=== PATIENT | male | born 1940 | race African-American/Black ===

== ENCOUNTER 2016-11-17 18:09 | Emergency (ER) | payer OTHER ==
[~2016-11-17] VITALS: Ht 180.3 cm; Wt 81.0 kg
[~2016-11-17 18:09] MED LIST: ALBU8I INH; MOME17I; TRAV0.00 BOTH EYES
[2016-11-17 18:11] VITALS: BP 163/77; PULSE 92; RESP 18; TEMP 98.4; O2SAT 98
[2016-11-17] MEDS ORDERED: [UNRECOGNIZED DRUG - OTHER] (18:38)
[2016-11-17 18:59] VITALS: BP 172/87; PULSE 93; RESP 15; O2SAT 100
[2016-11-17] MEDS ORDERED: SODIUM CHLOR 0.9% 1000 ML INJ 1,000 ML IV ONE (19:30)
--- NOTE | 2016-11-17 19:41 | PD ---
HPI . Weakness Chief Complaint: General Weakness Time Seen by Provider: 19:22 Travel History International Travel<30 days: No Contact w/Intl Traveler<30days: No Traveled to known affect area: No History of Present Illness HPI Patient presents with leg weakness. He reports acute onset today. He denies any associated symptoms. Specifically, no fever, no shortness of breath, no nausea/vomiting/diarrhea, no urinary tract symptoms, no rash, no headache. He reports no exacerbating or relieving symptoms. Symptoms are mild. Patient reports a recent history of bronchitis. They said he has completed treatment for bronchitis and the symptoms have improved. He reports no symptoms of bronchitis tonight. PFSH Past Medical History Blood Disorders: No (N) Diminished Hearing: No Gastrointestinal Disorders: Yes (HEMORRHOIDS) GERD: Yes Glaucoma: Yes Hypertension: Yes Respiratory: Yes (BRONCHITIS) Past Surgical History Abdominal Surgery: Yes (HEMORHOIDS; REPAIR OF ANAL FISSURE) Genitourinary Surgery: Yes (RECTAL FISSURE REPAIR 2000 ) Other Surgery: Yes (HEMORRHOID) Social History Alcohol Use: No Tobacco Use: No Substance Use: No Allergies-Medications (Allergen,Severity, Reaction): Coded Allergies: No Known Allergies (Verified , 11/17/16) NKA Reported Meds & Prescriptions Reported Meds & Active Scripts Active Reported [glaucoma meds] Review of Systems Except as stated in HPI: all other systems reviewed are Neg General / Constitutional: No: Fever, Chills Eyes: No: Blurred Vision, Drainage HENT: No: Rhinitis, Rhinorrhea, Congestion Cardiovascular: No: Chest Pain or Discomfort Respiratory: No: Cough, Shortness of Breath Gastrointestinal: No: Nausea, Vomiting, Diarrhea Genitourinary: No: Urgency, Frequency, Dysuria Musculoskeletal: No: Myalgias, Arthralgias Neurologic: Positive: Weakness Physical Exam Narrative GENERAL: Pleasant male in no acute distress. SKIN: Warm and dry. HEAD: Atraumatic. Normocephalic. EYES: Pupils equal and round. Extraocular movements are intact. ENT: No nasal bleeding or discharge. Mucous membranes pink and moist. NECK: Trachea midline. Neck is supple. CARDIOVASCULAR: Regular rate and rhythm. Heart sounds are normal. His heart rate is about 90. RESPIRATORY: No accessory muscle use. Lungs are clear with full air movement throughout. GASTROINTESTINAL: Abdomen soft, non-tender, nondistended. Soft and nontender. MUSCULOSKELETAL: No obvious deformities. No edema. NEUROLOGICAL: Awake and alert. No obvious cranial nerve deficits. Motor grossly within normal limits. Normal speech. He has full and equal muscle strength in all muscle groups of the lower extremities. PSYCHIATRIC: Appropriate mood and affect; insight and judgment normal. Data Data Last Documented VS Vital Signs Date Time Temp Pulse Resp B/P Pulse Ox O2 Delivery O2 Flow Rate FiO2 11/17/16 19:00 90 15 100 Room Air 11/17/16 18:59 172/87 11/17/16 18:11 98.4 Orders Complete Blood Count With Diff (11/17/16 19:22) Basic Metabolic Panel (Bmp) (11/17/16 19:22) Urinalysis - C+S If Indicated (11/17/16 19:22) Chest, Pa & Lat (11/17/16 ) Sodium Chlor 0.9% 1000 Ml Inj (Ns 1000 M (11/17/16 19:30) Labs Laboratory Tests Test 11/17/16 11/17/16 19:30 19:35 White Blood Count 5.7 TH/MM3 Red Blood Count 4.13 MIL/MM3 Hemoglobin 13.5 GM/DL Hematocrit 38.7 % Mean Corpuscular Volume 93.6 FL Mean Corpuscular Hemoglobin 32.6 PG Mean Corpuscular Hemoglobin 34.8 % Concent Red Cell Distribution Width 13.2 % Platelet Count 215 TH/MM3 Mean Platelet Volume 7.8 FL Neutrophils (%) (Auto) 50.2 % Lymphocytes (%) (Auto) 39.2 % Monocytes (%) (Auto) 8.2 % Eosinophils (%) (Auto) 1.6 % Basophils (%) (Auto) 0.8 % Neutrophils # (Auto) 2.9 TH/MM3 Lymphocytes # (Auto) 2.2 TH/MM3 Monocytes # (Auto) 0.5 TH/MM3 Eosinophils # (Auto) 0.1 TH/MM3 Basophils # (Auto) 0.0 TH/MM3 CBC Comment DIFF FINAL Differential Comment Sodium Level 138 MEQ/L Potassium Level 4.0 MEQ/L Chloride Level 104 MEQ/L Carbon Dioxide Level 28.3 MEQ/L Anion Gap 6 MEQ/L Blood Urea Nitrogen 8 MG/DL Creatinine 1.57 MG/DL Estimat Glomerular Filtration 53 ML/MIN Rate Random Glucose 89 MG/DL Calcium Level 8.8 MG/DL Urine Color LIGHT-YELLOW Urine Turbidity CLEAR Urine pH 7.5 Urine Specific [place] 1.003 Urine Protein NEG mg/dL Urine Glucose (UA) NEG mg/dL Urine Ketones NEG mg/dL Urine Occult Blood NEG Urine Nitrite NEG Urine Bilirubin NEG Urine Urobilinogen LESS THAN 2.0 MG/DL Urine Leukocyte Esterase NEG Urine RBC LESS THAN 1 /hpf Urine WBC LESS THAN 1 /hpf Microscopic Urinalysis Comment CULT NOT INDICATED MDM Medical Decision Making Medical Screen Exam Complete: Yes Emergency Medical Condition: Yes Differential Diagnosis Differential diagnosis of weakness includes but is not limited to infection, CVA , electrolyte disturbance, renal failure, hypoglycemia, UTI, ACS, acute blood loss Narrative Course Patient presents complaining with bilateral leg weakness. He has no physical exam findings. His heart rate is a little elevated at about 90. I will give him a liter of fluid while his lab test are pending. CBC & BMP Diagram 11/17/16 19:30 UA is clear. Chest x-ray to my interpretation is negative for infiltrate. Radiologist also reported as negative. Diagnosis Primary Impression: Weakness Patient Instructions: General Instructions, Weakness (ED) Disposition: 01 DISCHARGE HOME Condition: Stable Charlee Reyes MD Nov 17, 2016 19:41 Charlee Reyes MD Nov 17, 2016 19:41
[2016-11-17 19:47] LABS: BLOOD, URINE NEG (NEG); GLUCOSE,URINE NEG (NEG); KETONE, URINE NEG (NEG); NITRITE,URINE NEG (NEG); PH, URINE 7.5 (5.0-8.5); URINE COLOR LIGHT-YELLOW (YELLW/STRAW)
[2016-11-17 19:48] LABS: AUTOMATED NEUTROPHIL # 2.9 TH/MM3 (1.8-7.7); BASOPHIL % 0.8 % (0.0-2.0); EOSINOPHIL # 0.1 TH/MM3 (0-0.4); EOSINOPHIL % 1.6 % (0.0-4.0); HEMATOCRIT 38.7 % (39.0-51.0); HEMO FLAGS DIFF FINAL; LYMPH % 39.2 % (9.0-44.0); LYMPHOCYTE # 2.2 TH/MM3 (1.0-4.8); MEAN CELL VOLUME 93.6 FL (80.0-100.0); MEAN CORPUSCULAR HEMOGLOBIN 32.6 PG (27.0-34.0); MEAN CORPUSCULAR HGB CONC 34.8 % (32.0-36.0); MONO % 8.2 % (0.0-8.0); NEUT % 50.2 % (16.0-70.0); PLATELET COUNT 215 TH/MM3 (150-450); RED BLOOD COUNT 4.13 MIL/MM3 (4.50-5.90); RED CELL DISTRIBUTION WIDTH 13.2 % (11.6-17.2); WHITE BLOOD COUNT 5.7 TH/MM3 (4.0-11.0)
[2016-11-17 19:54] LABS: COMMENT (UR) CULT NOT INDICATED; CULTURE IF INDICATED CULT NOT INDICATED
[2016-11-17 20:09] LABS: BICARBONATE 28.3 MEQ/L (21.0-32.0)
--- NOTE | 2016-11-17 20:16 | RADRPT ---
EXAM DATE/TIME: 11/17/2016 19:45 [facility] COMPARISON: No previous studies available for comparison. INDICATIONS : Cough MEDICAL HISTORY : None. SURGICAL HISTORY : None. ENCOUNTER: Initial ACUITY: 1 day PAIN SCORE: 0/10 LOCATION: Bilateral chest FINDINGS: PA and lateral views of the chest demonstrate the lungs to be symmetrically aerated without evidence of mass, infiltrate or effusion. The cardiomediastinal contours are unremarkable. Osseous structure s are intact. CONCLUSION: No acute disease. Carrillo Moore MD on November 17, 2016 at 20:14 Board Certified Radiologist. This report was verified electronically.
== END 2016-11-17 21:46 | disposition home or self-care (01) ==
LOC: NEPC 18:09
DX: R53.1 Weakness (principal); I10 Essential (primary) hypertension; K21.9 Gastro-esophageal reflux disease without esophagitis; H40.9 Unspecified glaucoma
CPT/HCPCS: 71020; 80048; 81001; 85025; 99285; J7030

== ENCOUNTER 2017-01-30 18:34 | Emergency (ER) | payer OTHER ==
[~2017-01-30] VITALS: Ht 180.3 cm; Wt 77.0 kg
[~2017-01-30 18:34] MED LIST changes: -ALBU8I INH; -MOME17I; -TRAV0.00 BOTH EYES; +[UNRECOGNIZED DRUG - OTHER]
[2017-01-30 18:35] VITALS: BP 156/74; PULSE 102; RESP 20; TEMP 97.7; O2SAT 98
--- NOTE | 2017-01-30 18:45 | PD ---
Physical Exam Date Seen by Provider: Jan 30, 2017 Time Seen by Provider: 18:43 Narrative 76 yo male here for evaluation of chest pains. per patient he [facility] Pain to the left side. per patient is like a soreness. hurts when he takes a deep breath. Pain is 4/10. [facility] and mentioned chest pain so told to come here. Vitals are stable in triage. Awaiting bed placement. Data Data Last Documented VS Vital Signs Date Time Temp Pulse Resp B/P Pulse Ox O2 Delivery O2 Flow Rate FiO2 01/30/17 18:35 97.7 102 20 156/74 98 Room Air [facility] Medical Record Reviewed: Yes Supervised Visit with YANI: Medhat Grier Jan 30, 2017 18:45
--- NOTE | 2017-01-30 19:11 | PD ---
HPI Chief Complaint: Back/ Neck Pain or Injury Time Seen by Provider: 19:08 Travel History International Travel<30 days: No Contact w/Intl Traveler<30days: No Traveled to known affect area: No History of Present Illness HPI 76-year-old black male presents to emergency department with complains of left- sided upper back pain. He states that he's been having these pains on and off for a year. He states that these started after he had gotten a new recliner. He states that when he sleeps on the recliner he leans onto the armrest with his left chest wall. He states that when he wakes up he has pain in his left upper back and side. He does not have any pain currently. The pain is worse when he bends and moves her sleeps in the recliner. He states that when he does not sleep in the recliner he does not get these pains. He denies any trauma. No nausea vomiting. No shortness of breath. No anginal chest pain. [facility] Past Medical History Narrative Medical Denies diabetes and hypertension. Positive glaucoma. Blood Disorders: No (N) Diminished Hearing: No Gastrointestinal Disorders: Yes (HEMORRHOIDS) GERD: Yes Glaucoma: Yes Hypertension: Yes Respiratory: Yes (BRONCHITIS) Tetanus Vaccination: < 5 Years Past Surgical History Abdominal Surgery: Yes (HEMORHOIDS; REPAIR OF ANAL FISSURE) Genitourinary Surgery: Yes (RECTAL FISSURE REPAIR 2000 ) Other Surgery: Yes (HEMORRHOID) Social History Alcohol Use: Yes (OCC) Tobacco Use: No Substance Use: No Allergies-Medications (Allergen,Severity, Reaction): Coded Allergies: No Known Allergies (Verified , 11/17/16) NKA Reported Meds & Prescriptions Reported Meds & Active Scripts Active Reported [glaucoma meds] Review of Systems Except as stated in HPI: all other systems reviewed are Neg Physical Exam Narrative GENERAL: Well-developed, well-nourished in no acute distress. Nontoxic appearing. HEAD: Normocephalic, atraumatic. EYES: Pupils equal round and reactive. Extraocular motions intact. No scleral icterus. No injection or drainage. ENT: TMs clear without erythema. The external auditory canals clear. Nose: clear . Posterior pharynx is pink and moist. No tonsillar edema or exudate. Uvula midline. Airway patent. NECK: Trachea midline.Supple, nontender, moves head freely. No central bony tenderness or spasm. CARDIOVASCULAR: Regular rate and rhythm without murmurs, gallops, or rubs. RESPIRATORY: Clear to auscultation. Breath sounds equal bilaterally. No wheezes , rales, or rhonchi. GASTROINTESTINAL: Abdomen soft, non-tender, nondistended. No hepato-splenomegaly , or palpable masses. No guarding. EXTREMITIES: No clubbing, cyanosis, or edema. No joint tenderness, effusion, or edema noted. BACK: Nontender without deformity or crepitance. No flank tenderness. Data Data Last Documented VS Vital Signs Date Time Temp Pulse Resp B/P Pulse Ox O2 Delivery O2 Flow Rate FiO2 01/30/17 18:44 01/30/17 18:35 97.7 102 20 98 Room Air MDM Medical Decision Making Medical Screen Exam Complete: Yes Emergency Medical Condition: Yes Medical Record Reviewed: Yes Differential Diagnosis MDM: High Differential diagnoses: AAA,Fracture, sprain, strain, HNP, nerve or vascular injury, epidural abscess, pilonidal cyst, pyelonephritis, UTI, nephrolithiasis, ureterolithiasis Narrative Course This is back pain Diagnosis Primary Impression: Back pain Qualified Code: M54.6 - Chronic left-sided thoracic back pain Patient Instructions: General Instructions Additional Instructions: Rest. Avoid sleeping in the recliner. Tylenol for pain. Follow-up with your doctor in next 2-3 days for recheck. Med/Other Pt SpecificInfo: No Meds Exist/No RX given Disposition: 01 DISCHARGE HOME Condition: Stable Carrillo Carrizales Jan 30, 2017 19:11
== END 2017-01-30 19:18 | disposition home or self-care (01) ==
LOC: NEPK 18:34
DX: M54.6 Pain in thoracic spine (principal); I10 Essential (primary) hypertension; Z86.69 Personal history of other diseases of the nervous system and sense organs; Z87.19 Personal history of other diseases of the digestive system; Z87.09 Personal history of other diseases of the respiratory system
CPT/HCPCS: 99282

== ENCOUNTER 2017-08-29 20:25 | Emergency (ER) | payer OTHER ==
[~2017-08-29] VITALS: Ht 182.9 cm; Wt 75.0 kg
[2017-08-29 20:28] VITALS: BP 181/82; PULSE 94; RESP 16; TEMP 97.6; O2SAT 100
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
== END 2017-08-29 22:29 | disposition home or self-care (01) ==
LOC: NEPD 20:25
DX: Z04.1 Encounter for examination and observation following transport accident (principal); I10 Essential (primary) hypertension; K21.9 Gastro-esophageal reflux disease without esophagitis; H40.9 Unspecified glaucoma; Z72.0 Tobacco use
CPT/HCPCS: 99282

== ENCOUNTER 2017-09-02 14:57 | Emergency (ER) | payer OTHER ==
[~2017-09-02] VITALS: Ht 180.3 cm; Wt 81.4 kg
[2017-09-02 14:58] VITALS: BP 111/71; PULSE 80; RESP 16; TEMP 98.6; O2SAT 99
[2017-09-02] MEDS ORDERED: CYCL10TA PO (16:30)
[2017-09-02] MEDS ORDERED: NAPR500T2 PO (16:30)
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
== END 2017-09-02 17:11 | disposition home or self-care (01) ==
LOC: NEPK 14:57
DX: M62.830 Muscle spasm of back (principal); S39.012A Strain of muscle, fascia and tendon of lower back, initial encounter; I10 Essential (primary) hypertension; K21.9 Gastro-esophageal reflux disease without esophagitis; H40.9 Unspecified glaucoma; V49.9XXD Car occupant (driver) (passenger) injured in unspecified traffic accident, subsequent encounter
CPT/HCPCS: 99283

== ENCOUNTER 2017-11-29 18:17 | Emergency (ER) | payer OTHER ==
[~2017-11-29] VITALS: Ht 180.3 cm; Wt 75.0 kg
[~2017-11-29 18:17] MED LIST changes: +CYCL10TA PO; +NAPR500T2 PO
[2017-11-29 18:25] VITALS: BP 150/70; PULSE 90; RESP 18; TEMP 98; O2SAT 98
[2017-11-29] MEDS ORDERED: CETI10 (21:17)
[2017-11-29] MEDS ORDERED: AZIT250T3 PO (21:41)
--- NOTE | 2017-11-29 21:41 | PD ---
HPI Chief Complaint: Pain: Acute or Chronic Time Seen by Provider: 20:41 Travel History International Travel<30 days: No Contact w/Intl Traveler<30days: No Traveled to known affect area: No History of Present Illness HPI Patient 77-year-old male presents emergency department with generalized weakness particularly in his lower legs associated with a cough and sneezing which is starting to resolve. Patient states this happens to him and is usually diagnosed with bronchitis. He went to the [place] recently and was told that he probably had allergies and was started on sertraline. He states his medicine did not help him. States he has been doing his regular lab work and has not been significant abnormalities. Denies any low back pain denies any saddle anesthesia difficulty urinating. Denies any head injury, denies any abdominal pain chest pain or shortness of breath. Patient states symptoms are mild, for the past few weeks, associated signs symptoms and context as above PFSH Past Medical History Diabetes: No Patient Takes Glucophage: No Diminished Hearing: No Gastrointestinal Disorders: Yes (HEMORRHOIDS) GERD: Yes Glaucoma: Yes Hypertension: Yes Respiratory: Yes (BRONCHITIS) Immunizations Current: Yes Tetanus Vaccination: > 5 Years Influenza Vaccination: No Past Surgical History Abdominal Surgery: Yes (HEMORHOIDS; REPAIR OF ANAL FISSURE) Genitourinary Surgery: Yes (RECTAL FISSURE REPAIR 2000 ) Other Surgery: Yes (HEMORRHOID) Social History Alcohol Use: No Tobacco Use: No (quit ) Substance Use: No Allergies-Medications (Allergen,Severity, Reaction): Coded Allergies: No Known Allergies (Verified Adverse Reaction, Unknown, 11/29/17) NKA Reported Meds & Prescriptions Reported Meds & Active Scripts Active Azithromycin 250 Mg Tab 250 Mg PO DIRECTED Take 2 tabs (500 mg) on day 1 then 1 tab daily x 4 days. Reported Cetirizine (Cetirizine HCl) 10 Mg Tab 10 Mg DAILY [glaucoma meds] Review of Systems Except as stated in HPI: all other systems reviewed are Neg Physical Exam Narrative GENERAL: Well-nourished, well-developed patient. SKIN: Focused skin assessment warm/dry. HEAD: Normocephalic. Atraumatic EYES: No scleral icterus. No injection or drainage. ENT: TMs clear bilaterally, oropharynx clear moist NECK: Supple, trachea midline. No JVD or lymphadenopathy. CARDIOVASCULAR: Regular rate and rhythm without murmurs, gallops, or rubs. RESPIRATORY: Breath sounds equal bilaterally. No accessory muscle use. GASTROINTESTINAL: Abdomen soft, non-tender, nondistended. MUSCULOSKELETAL: No cyanosis, or edema. NEUROLOGIC: Cranial nerves II through XII are grossly intact and nonfocal, 5 out of 5 strength in all 4 extremity's, cerebellar testing negative. Ambulates with an even narrow-base gait BACK: Nontender without obvious deformity. No CVA tenderness. Data Data Last Documented VS Vital Signs Date Time Temp Pulse Resp B/P (MAP) Pulse Ox O2 Delivery O2 Flow Rate FiO2 11/29/17 18:25 98.0 90 18 150/70 (96) 98 Orders Orders Ed Discharge Order (11/29/17 21:41) MDM Medical Decision Making Medical Screen Exam Complete: Yes Emergency Medical Condition: Yes Differential Diagnosis Bronchitis, pneumonia unlikely, cauda equina unlikely, neurologic dysfunction highly unlikely Narrative Course Patient room to the emergency department, lungs are clear, strength is 5 out of 5 and equal bilaterally. No indication further workup of this patient this time , after discussion with the patient he states that the symptoms are very similar to bronchitis and is passing states azithromycin usually clear asthma. I discussed that most bronchitis is viral and azithromycin while usually prescribed is not typically indicated. Diagnosis Primary Impression: Bronchitis Med/Other Pt SpecificInfo: Prescription(s) given Scripts Azithromycin (Azithromycin) 250 Mg Tab 250 MG PO DIRECTED for Infection, #6 TAB 0 Refills Take 2 tabs (500 mg) on day 1 then 1 tab daily x 4 days. Prov: Vidal Pro MD 11/29/17 Disposition: 01 DISCHARGE HOME Condition: Stable Vidal Pro MD Nov 29, 2017 21:41
== END 2017-11-29 21:53 | disposition home or self-care (01) ==
LOC: NEPD 18:17
DX: J40 Bronchitis, not specified as acute or chronic (principal); Z87.891 Personal history of nicotine dependence
CPT/HCPCS: 99283